=== PATIENT | male | born 1980 | race Two or more races ===

== ENCOUNTER 2021-04-12 04:23 | Emergency (ER) | payer MEDICAID, OTHER ==
[~2021-04-12] VITALS: Ht 170.2 cm; Wt 81.6 kg
[2021-04-12 05:22] VITALS: BP 149/76
== END 2021-04-12 06:47 | disposition home or self-care (01) ==
LOC: EDBD 04:23 → ER 04:23
DX: T40.691A Poisoning by other narcotics, accidental (unintentional), initial encounter (principal); R41.82 Altered mental status, unspecified; F12.10 Cannabis abuse, uncomplicated; F15.10 Other stimulant abuse, uncomplicated; Y92.89 Other specified places as the place of occurrence of the external cause

== ENCOUNTER 2023-06-17 11:05 | Inpatient (IN) | payer MEDICAID, OTHER ==
[~2023-06-17] VITALS: Ht 172.7 cm; Wt 78.2 kg
[~2023-06-17 11:05] MED LIST: AZIT-74 PO; DOXY-286 PO; FURO20TA3 PO; MET25T PO; QUET1TAB11 PO; SACU1TAB PO; SPIR25TA PO
[2023-06-17 11:40] VITALS: PULSE 106; RESP 19; O2SAT 96
[2023-06-17 11:40] LABS: Basophils # (auto) 0.1 10 ^3/uL (0-0.2); Basophils % (auto) 0.5 % (0.0-2.0); Eosinophils # (auto) 0.2 10 ^3/uL (0-0.8); Eosinophils % (auto) 1.4 % (0.0-7.0); Hematocrit 36.9 % (41.0-53.0); Hemoglobin 12.2 g/dL (13.5-17.5); Lymphocytes # (auto) 1.6 10 ^3/uL (0.4-5.4); Mean Corpuscular Hemoglobin 30.2 pg (28.0-32.0); Mean Corpuscular Hgb Conc. 33.1 g/dL (32.0-36.0); Mean Corpuscular Volume 91.1 fL (80.0-100.0); Monocytes # (auto) 1.7 10 ^3/uL (0-1.3); Monocytes % (auto) 13.9 % (0.0-12.0); Neutrophils # (auto) 8.9 10 ^3/uL (1.6-8.6); Neutrophils % (auto) 71.2 % (37.0-80.0); Nucleated Red Blood Cells % 0.1 %; Red Blood Cells 4.06 10^6/uL (4.5-5.90); Red Cell Distribution Width 14.6 % (11.8-14.3); White Blood Cell 12.4 10^3/uL (4.4-10.8)
[2023-06-17 11:56] LABS: Alanine Aminotransferase 19 U/L (7-40); Albumin 4.2 g/dL (3.2-4.8); Alkaline Phosphatase 52 U/L (46-116); Anion Gap 8 (5-15); Aspartate Aminotransferase 25 U/L (13-40); BUN/Creatinine Ratio 32.9 (10.0-20.0); Bilirubin, Total 0.6 mg/dL (0.2-1.0); Blood Urea Nitrogen 25 mg/dL (9-23); Calcium 9.2 mg/dL (8.5-10.1); Carbon Dioxide 24 mmol/L (20-30); Chloride 105 mmol/L (98-107); Glucose 88 mg/dL (74-106); Potassium 4.4 mmol/L (3.5-5.1); Sodium 137 mmol/L (136-145); Total Protein 6.7 g/dL (5.7-8.2)
[2023-06-17] MEDS ORDERED: ONDANSETRON HCL 4 MG/2 ML VIAL IV ONE (12:00)
[2023-06-17] MEDS ORDERED: MORPHINE SULFATE 4 MG/ML SYR/VIAL IV ONE (12:00)
[2023-06-17] MEDS ORDERED: ASPirin 81 mg TAB PO ONE (12:00)
[2023-06-17] MEDS ORDERED: NITROGLYCERIN 0.4 MG SL TAB SL ONE (12:00)
[2023-06-17] MEDS ORDERED: ENOXAPARIN SOD 80 MG/0.8ML SYRINGE SC ONE (13:15)
[2023-06-17] MEDS ORDERED: DOCUSATE SOD 100 MG CAP PO PRN (16:15)
[2023-06-17] MEDS ORDERED: ACETAMINOPHEN 325 MG TAB PO PRN (16:15)
[2023-06-17] MEDS ORDERED: SODIUM CHLORIDE 0.9% 1,000 ML IV SCH (16:15)
[2023-06-17] MEDS ORDERED: NITROGLYCERIN 0.4 MG SL TAB SL PRN (16:15)
[2023-06-17] MEDS ORDERED: cefTRIAXone 1GM/50ML D5W 50 ML IV ONE (16:30)
[2023-06-17] MEDS ORDERED: SODIUM CHLORIDE 0.9% 1,000 ML IV ONE (16:45)
[2023-06-17 17:53] LABS: INR 1.07 (0.9-1.15); Partial Thromboplastin Time 33.2 SEC (24.5-34.5); Prothrombin Time 11.2 sec (9.3-11.8)
[2023-06-17 18:14] LABS: Urine Bacteria NONE SEEN /hpf (None Seen); Urine Blood Negative /uL (Negative); Urine Clarity Clear (Clear); Urine Color Yellow (Yellow); Urine Hyaline Cast FEW /lpf (0 - 2); Urine Mucus FEW (None Seen); Urine Protein, UAD TRACE (Negative); Urine Specific Gravity 1.038 (1.001-1.035); Urine Urobilinogen Normal (Negative); Urine WBC 1 /hpf (0 - 3)
[2023-06-17 18:22] LABS: Amphetamine Screen, Urine Pos (NEGATIVE); Barbiturate Scree,Urine Neg (NEGATIVE); Benzodiazephine Screen, Urine Neg (NEGATIVE); Cocaine Screen, Urine Neg (NEGATIVE); Opiate Scree,Urine Pos (NEGATIVE); Phencyclidine Screen, Urine Pos (NEGATIVE)
[2023-06-17 18:23] LABS: Cannabinoid Screen, Urine Pos (NEGATIVE)
[2023-06-17 20:00] VITALS: PULSE 110; RESP 16; O2SAT 95
[2023-06-17 20:32] LABS: COVID19 ANTIGEN SOFIA FIA NEGATIVE (NEGATIVE); Rapid Influenza A Negative (Negative); Rapid Influenza B Negative (Negative)
[2023-06-17] MEDS: MORPHINE SULFATE INJ 2 MG/ml SYRG IV PRN (20:43)
[2023-06-17] MEDS: ONDANSETRON HCL 4 MG/2 ML VIAL IV PRN (20:43)
[2023-06-17] MEDS: METOPROLOL TARTRATE 25 MG TAB PO SCH (22:00)
[2023-06-17] MEDS: QUEtiapine FUMARATE 25 MG TAB PO SCH (22:21)
[2023-06-17] MEDS: SACUBITRIL-VALSARTAN 24mg/26mg TAB PO SCH (22:21)
[2023-06-18] MEDS: ONDANSETRON HCL 4 MG/2 ML VIAL IV PRN (06:23)
[2023-06-18] MEDS: MORPHINE SULFATE INJ 2 MG/ml SYRG IV PRN ×2 (06:24→10:23)
[2023-06-18] MEDS: QUEtiapine FUMARATE 25 MG TAB PO SCH ×3 (06:24→21:44)
[2023-06-18 06:27] LABS: Basophils # (auto) 0 10 ^3/uL (0-0.2); Basophils % (auto) 0.3 % (0.0-2.0); Eosinophils # (auto) 0.2 10 ^3/uL (0-0.8); Eosinophils % (auto) 1.6 % (0.0-7.0); Hematocrit 35.9 % (41.0-53.0); Lymphocytes # (auto) 1.3 10 ^3/uL (0.4-5.4); Lymphocytes % (auto) 13.4 % (10.0-50.0); Mean Corpuscular Hemoglobin 30.6 pg (28.0-32.0); Mean Corpuscular Hgb Conc. 33.3 g/dL (32.0-36.0); Mean Corpuscular Volume 91.8 fL (80.0-100.0); Monocytes # (auto) 1.4 10 ^3/uL (0-1.3); Monocytes % (auto) 15.1 % (0.0-12.0); Neutrophils # (auto) 6.7 10 ^3/uL (1.6-8.6); Neutrophils % (auto) 69.6 % (37.0-80.0); Red Blood Cells 3.91 10^6/uL (4.5-5.90); Red Cell Distribution Width 14.6 % (11.8-14.3); White Blood Cell 9.6 10^3/uL (4.4-10.8)
[2023-06-18 06:43] LABS: Alanine Aminotransferase 14 U/L (7-40); Albumin 3.9 g/dL (3.2-4.8); Alkaline Phosphatase 50 U/L (46-116); Anion Gap 8 (5-15); Aspartate Aminotransferase 14 U/L (13-40); BUN/Creatinine Ratio 20.3 (10.0-20.0); Blood Urea Nitrogen 15 mg/dL (9-23); Calcium 8.9 mg/dL (8.5-10.1); Carbon Dioxide 25 mmol/L (20-30); Chloride 103 mmol/L (98-107); Glucose 80 mg/dL (74-106); Potassium 4.4 mmol/L (3.5-5.1); Sodium 136 mmol/L (136-145)
[2023-06-18 06:44] LABS: Bilirubin, Total 0.7 mg/dL (0.2-1.0); Total Protein 6.5 g/dL (5.7-8.2)
[2023-06-18 07:15] VITALS: BP 100/67; PULSE 100; RESP 18; TEMP 98.4; O2SAT 96
[2023-06-18 08:00] VITALS: PULSE 103; RESP 16; O2SAT 96
[2023-06-18] MEDS ORDERED: cefTRIAXone 1GM/50ML D5W 50 ML IV SCH (09:00)
[2023-06-18] MEDS: SACUBITRIL-VALSARTAN 24mg/26mg TAB PO SCH ×2 (09:13→21:47)
[2023-06-18] MEDS: ASPirin-EC 81 mg tab PO SCH (09:13)
[2023-06-18] MEDS: ENOXAPARIN SOD 40 MG/0.4 ML SYRINGE SC SCH (09:13)
[2023-06-18] MEDS: SPIRONOLACTONE 25 MG TAB PO SCH (09:13)
[2023-06-18] MEDS: METOPROLOL TARTRATE 25 MG TAB PO SCH ×2 (09:14→21:45)
[2023-06-18 09:50] VITALS: PULSE 98; RESP 17; O2SAT 100
[2023-06-18] MEDS ORDERED: FUROSEMIDE 20 MG/2 ML VIAL IV SCH (10:00)
[2023-06-18] MEDS ORDERED: IOHEXOL 350 MG/ML 100ML IJ ONE (14:21)
[2023-06-18 20:00] VITALS: PULSE 107; RESP 18; O2SAT 100
[2023-06-18] MEDS: HYDROcodone-ACET 5/325MG TAB PO PRN (20:10)
[2023-06-18 22:00] VITALS: BP 104/63; PULSE 106; RESP 19; TEMP 98.7; O2SAT 97
[2023-06-19] VITALS (7 sets, daily range): BP systolic 95–110; BP diastolic 58–66; PULSE 80–105; RESP 18–20; TEMP 97.8–98.4; O2SAT 95–100
[2023-06-19] MEDS: HYDROcodone-ACET 5/325MG TAB PO PRN (02:49)
[2023-06-19] MEDS: QUEtiapine FUMARATE 25 MG TAB PO SCH ×3 (05:20→21:24)
[2023-06-19 05:52] LABS: Anion Gap 5 (5-15); Carbon Dioxide 27 mmol/L (20-30); Chloride 103 mmol/L (98-107); Potassium 4.2 mmol/L (3.5-5.1); Sodium 135 mmol/L (136-145)
[2023-06-19 05:53] LABS: Calcium 8.7 mg/dL (8.7-10.4)
[2023-06-19 05:58] LABS: BUN/Creatinine Ratio 14.7 (10.0-20.0); Blood Urea Nitrogen 10 mg/dL (9-23); Glucose 114 mg/dL (74-106)
[2023-06-19] MEDS: MORPHINE SULFATE INJ 2 MG/ml SYRG IV PRN (08:56)
[2023-06-19] MEDS: SACUBITRIL-VALSARTAN 24mg/26mg TAB PO SCH ×2 (09:03→21:24)
[2023-06-19] MEDS: ASPirin-EC 81 mg tab PO SCH (09:03)
[2023-06-19] MEDS: ENOXAPARIN SOD 40 MG/0.4 ML SYRINGE SC SCH (09:04)
[2023-06-19] MEDS: FUROSEMIDE 20 MG/2 ML VIAL IV SCH ×2 (13:46→21:23)
[2023-06-19] MEDS: SPIRONOLACTONE 25 MG TAB PO SCH (13:48)
[2023-06-19] MEDS: METOPROLOL TARTRATE 25 MG TAB PO SCH ×2 (13:49→21:25)
[2023-06-20 05:00] VITALS: BP 108/68; PULSE 83; RESP 19; TEMP 98.1; O2SAT 100
[2023-06-20] MEDS: HYDROcodone-ACET 5/325MG TAB PO PRN (05:20)
[2023-06-20] MEDS: QUEtiapine FUMARATE 25 MG TAB PO SCH (05:20)
[2023-06-20 06:26] LABS: Chloride 104 mmol/L (98-107); Potassium 4.7 mmol/L (3.5-5.1); Sodium 138 mmol/L (136-145)
[2023-06-20 06:27] LABS: Anion Gap 4 (5-15); Carbon Dioxide 30 mmol/L (20-30)
[2023-06-20 06:28] LABS: Calcium 9.1 mg/dL (8.7-10.4)
[2023-06-20 06:32] LABS: Glucose 95 mg/dL (74-106)
[2023-06-20 06:33] LABS: BUN/Creatinine Ratio 16.4 (10.0-20.0); Blood Urea Nitrogen 12 mg/dL (9-23)
[2023-06-20] MEDS ORDERED: EMPAGLIFLOZIN 10 MG TAB PO SCH (07:00)
[2023-06-20 08:00] VITALS: PULSE 81; PULSE 88; RESP 15; O2SAT 95
[2023-06-20 09:00] VITALS: BP 94/61; PULSE 88; RESP 15; TEMP 98; O2SAT 95
[2023-06-20] MEDS: FUROSEMIDE 20 MG/2 ML VIAL IV SCH (10:14)
[2023-06-20] MEDS: ASPirin-EC 81 mg tab PO SCH (10:14)
[2023-06-20] MEDS: SACUBITRIL-VALSARTAN 24mg/26mg TAB PO SCH (10:15)
[2023-06-20] MEDS: SPIRONOLACTONE 25 MG TAB PO SCH (10:15)
[2023-06-20] MEDS: ENOXAPARIN SOD 40 MG/0.4 ML SYRINGE SC SCH (10:15)
[2023-06-20] MEDS: METOPROLOL TARTRATE 25 MG TAB PO SCH (10:16)
[2023-06-20] MEDS ORDERED: FURO1TAB31 PO (10:49)
[2023-06-20] MEDS ORDERED: POTA-228 PO (10:49)
[2023-06-20 12:49] VITALS: BP 89/62; PULSE 86; RESP 15; TEMP 98; O2SAT 96
== END 2023-06-20 13:14 | DRG 280 ==
LOC: ER 11:05 → EDBD 11:05 → TELE 16:23 → EEVIPCON 16:23 → TELE-CENTR 06-18 17:12
PROVIDERS: ADMIT Nurse Practitioner Family; ATTEND Internal Medicine
DX: I11.0 Hypertensive heart disease with heart failure (principal); I21.A1 Myocardial infarction type 2; I50.23 Acute on chronic systolic (congestive) heart failure; J96.00 Acute respiratory failure, unspecified whether with hypoxia or hypercapnia; I42.7 Cardiomyopathy due to drug and external agent; I42.0 Dilated cardiomyopathy; I44.5 Left posterior fascicular block; F15.10 Other stimulant abuse, uncomplicated; D72.829 Elevated white blood cell count, unspecified; H93.13 Tinnitus, bilateral; Z20.822 Contact with and (suspected) exposure to COVID-19; Z79.2 Long term (current) use of antibiotics; Z79.899 Other long term (current) drug therapy; Z90.49 Acquired absence of other specified parts of digestive tract; Z83.3 Family history of diabetes mellitus; Z82.49 Family history of ischemic heart disease and other diseases of the circulatory system; Z91.199 Patient's noncompliance with other medical treatment and regimen due to unspecified reason
CPT/HCPCS: 36415; 71045; 71275; 80048; 80053; 80307; 81001; 83605; 83880; 84484; 85025; 85379; 85610; 85730; 87081; 87426; 87804; 93005; 96372; 96374; 96375; 99291; G0378; J2405